=== PATIENT | male | born 1930 | race Caucasian/White ===

== ENCOUNTER 2017-05-30 11:39 | Inpatient (IN) | payer MEDICARE, BC ==
[~2017-05-30] VITALS: Ht 188 cm; Wt 80.4 kg
[~2017-05-30 11:39] MED LIST: ACET80TA52 PO; ACID1TAB13 PO; ALPR0.254 PO; ASPI-630 PO; ATOR10TA60 PO; COLC0.6T34 PO; DOCU-109 PO; ESCITALOPRAM OX10 MG PO; INSU100V8 SQ; LOPE2CAP PO; METO50TA2 PO; MIRT15TA PO; WARF1TAB74 PO; [UNRECOGNIZED DRUG - CODE] MC
[2017-05-30 12:56] LABS: BASO # 0.1 x10^3/uL (0.0-0.2); BASO % 1 % (0-3); EOS # 0.2 x10^3/uL (0.0-0.7); EOS % 3 % (0-3); HEMOGLOBIN 10.5 g/dL (13.0-17.5); LYMPH # 0.8 x10^3/uL (1.0-4.8); LYMPH % 9 % (24-48); MEAN CORPUSCULAR HEMOGLOBIN 25 pg (25-35); MEAN CORPUSCULAR HGB CONC 33 g/dL (31-37); MEAN CORPUSCULAR VOLUME 77 fL (79-100); MONO # 0.7 x10^3/uL (0.0-1.1); MONO % 9 % (0-9); NEUT # 6.6 x10^3uL (1.8-7.7); NEUT % 79 % (31-73); PLATELET COUNT 208 x10^3/uL (140-400); RED BLOOD COUNT 4.17 x10^6/uL (4.30-5.70); RED CELL DISTRIBUTION WIDTH 18.5 % (11.5-14.5); WHITE BLOOD COUNT 8.4 x10^3/uL (4.0-11.0)
[2017-05-30 13:05] LABS: CALCIUM 8.6 mg/dL (8.5-10.1); CREATININE 0.8 mg/dL (0.7-1.3); GFR 91.7
[2017-05-30 13:31] LABS: ALBUMIN 2.1 g/dL (3.4-5.0); C REACTIVE PROTEIN 128.9 mg/L (0-3.3); DIRECT BILIRUBIN 0.4 mg/dL (0.0-0.2); TOTAL BILIRUBIN 0.8 mg/dL (0.2-1.0); TOTAL PROTEIN 5.7 g/dL (6.4-8.2)
--- NOTE | 2017-05-30 13:42 | PHYS DOC ---
General Chief Complaint: LOWER EXT PAIN Stated Complaint: LOWER EXTREMITY PAIN Time Seen by MD: 12:25 Source: patient, old records Exam Limitations: no limitations Problems: History of Present Illness Initial Comments Patient is an 86-year-old male sent to the emergency department from [facility] for right pain and swelling. 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 Patient also has paroxysmal atrial fibrillation with history of DVT, he was taken off of Coumadin months ago. Patient awoke this morning with right lower leg pain and swelling symptoms. Patient denies any trouble breathing or chest discomfort, halfway records indicate the patient may have complained of some transient shortness of breath. Given the patient's extensive cardiac and hypercoagulability history he was sent to the emergency department for further evaluation. On arrival patient complains of mild right lower leg pain worse with movement better with rest. He denies any chest pain trouble breathing no focal weakness. The patient is hard of hearing. 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, CHF, COPD, diabetes, DVT, paroxysmal atrial fibrillation, coronary artery disease, generalized weakness, hyperlipidemia, depression, anxiety, gout, sick sinus syndrome, dysphagia, anemia, hypertension, urinary tension) Surgical History: other (gastrostomy tube, pacemaker) Social History Smoker: non-smoker Alcohol: none Drugs: none (was) Review of Systems Constitutional: denies chills, denies fever, denies malaise Respiratory: see HPI Cardiovascular: denies chest pain, denies palpitations, denies syncope Gastrointestinal: denies diarrhea, denies nausea, denies vomiting Musculoskeletal: denies back pain, denies joint swelling, denies neck pain Skin: see HPI Psychiatric/Neurological: denies headache, denies numbness, denies paresthesia Physical Exam General Appearance: no apparent distress (disheveled) HEENT: PERRL/EOMI, normal ENT inspection (poor dentition, patient is hard of hearing), TMs normal, pharynx normal Neck: non-tender, supple Cardiovascular/Respiratory: regular rate, rhythm, normal peripheral pulses, normal breath sounds, no respiratory distress Back: normal inspection, no CVA tenderness Legs: left leg non-tender, left leg normal inspection, left leg normal range of motion, left leg no evidence of injury, right leg other (edema and induration at the right foot and ankle extending to approximately mid shaft of the right tibia. There is no palpable subcutaneous mass, there does appear to be a healing old ulceration at the anteromedial tibia. There is 2+ pitting lower extremity edema at the right lower leg, patient refuses to allow me to remove his ankle sock for foot evaluation) Neurologic/Tendon: normal sensation, normal motor functions, normal tendon functions, responds to pain, no evidence tendon injury Psychiatric: alert, oriented x 3 Skin: warm/dry (right lower leg as above) Orders, Labs, Meds PATIENT: BIJAN HADDAD ACCOUNT: [id number] : 1930 LOCATION: ER AGE: 86 SEX: M EXAM STATUS: REG ER ORD. PHYSICIAN: ANTOINETTE OCAMPO DO REASON: calf pain/swelling h/o DVT PROCEDURE: VENOUS LOWER EXTREMITY RIGHT Indication right leg swelling and calf redness. Elevated d-dimer. Grayscale color Doppler and spectral imaging was performed. The examination was targeted to the veins of the right lower extremity. The common femoral, femoral and popliteal vessels demonstrate normal flow compressibility and augmentation. No thrombus is seen. The visualized calf veins appeared unremarkable. The left common femoral vein appeared normal. IMPRESSION: Negative right lower extremity venous analysis for DVT DICTATED AND SIGNED BY: LUIS MIGUEL VALLE MD DATE: 05/30/17 1338 CC: ANTOINETTE OCAMPO DO; APPLE HORTA MD ~ Pertinent labs: Hemoglobin 10.5, MCV 87, sedimentation rate 27, d-dimer 2.44, C- reactive protein 128.9, lactic acid 1.1 I discussed the patient with Dr. Montes De Oca, his PCP and real estate acquisition analyst hospitalist. He accepts the patient for inpatient telemetry admission, Zosyn and vancomycin intravenously, and check CTA of the chest. After reviewing these studies Dr Montes De Oca will determine whether he wants bone scan/MRI. Pt is agreeable. IMPRESSIONS: Right lower extremity cellulitis Normocytic anemia Elevated d-dimer Diabetes and hypercoagulable state ANTOINETTE OCAMPO DO May 30, 2017 13:42
[2017-05-30] MEDS ORDERED: PIP/TAZO PER PHARMACY MC PRN (13:45)
[2017-05-30] MEDS ORDERED: IV NORMAL SALINE 50ML 50 ML ONE (13:58)
[2017-05-30] MEDS ORDERED: PIPERACILLIN/TAZOBACTAM 4.5 GM VIAL IV ONE (13:58)
[2017-05-30] MEDS: PIPERACILLIN/TAZOBACTAM 4.5 GM in IV NORMAL SALINE 50ML 50 ML IV SCH ×2 (14:00→21:04)
[2017-05-30] MEDS ORDERED: ACETAMINOPHEN 325 MG TABLET PO PRN (14:15)
[2017-05-30] MEDS ORDERED: VANCOMYCIN 2 GM in IV NORMAL SALINE 500ML 500 ML IV ONE (14:30)
[2017-05-30] MEDS ORDERED: IOHEXOL 300 MG/ML 75 ML VIAL. IV ONE ×2 (15:00→15:10)
[2017-05-30 16:41] VITALS: BP 125/64
[2017-05-30] MEDS: VANCOMYCIN PER PHARMACY MC PRN (17:07)
--- NOTE | 2017-05-30 17:17 | RAD ---
Indication elevated d-dimer. Pain in the legs. Axial images through the chest were obtained. Approximately 75 cc of Omnipaque 300 was administered. MIP images were generated and reviewed. No prior CT imaging of the chest is available. Imaging through the upper abdomen shows no acute finding. The thoracic aorta appears unremarkable. Moderately extensive coronary artery calcification is noted. There are a few mediastinal lymph nodes. No definite pathologic mediastinal or hilar adenopathy is seen. There are calcified right hilar and subcarinal lymph nodes. The study is negative for pulmonary embolus. There is a small to moderate right pleural effusion and a small left. There is volume loss at the lung bases likely reflecting atelectasis. Underlying pneumonia is not entirely excluded. There is a 2 to 3 mm nodule in the right upper lobe, image 18 series 9. Follow-up imaging along the lines of the Fleischner criteria should be considered. IMPRESSION: Negative study for pulmonary embolus. Bilateral pleural effusions right greater than left. Volume loss at the lung bases likely reflects atelectasis. Underlying pneumonia is not entirely excluded. 2 to 3 mm pulmonary nodule in the right upper lobe. Follow-up imaging along the lines of the Fleischner criteria should be considered. Nodules detected incidentally at non-screening CT Nodule size (mm) less than or equal to 4 Low Risk patients- no follow-up needed High Risk patients- follow-up at 12 months and if no change, no further imaging needed. Nodule size > 4-6 mm Low risk patients- follow- up at 12 months and if no change, no further imaging needed High risk patients- initial follow-up CT at 6-12 months and then at 18-24 months if no change. Nodule Size > 6-8 mm Low risk patients- initial follow-up CT at 6-12 months and then at 18-24 months if no change. High risk patients- initial follow- up CT at 3-6 months and then at 9-12 months if no change, Nodule Size >8 mm Either low or high risk patients: Follow-up CT at around 3, 9 and [address], PET, and/or biopsy Note: newly detected indeterminate nodule in person 35 years of age or older. Low risk patients- minimal or absent history of smoking and/or other known risk factors. High risk patients- history of smoking or of other known risk factors. PQRS Compliance Statement: One or more of the following individualized dose reduction techniques were utilized for this examination: 1. Automated exposure control 2. Adjustment of the mA and/or kV according to patient size 3. Use of iterative reconstruction technique
[2017-05-30] MEDS ORDERED: HYDR-971 PO (17:21)
[2017-05-30] MEDS ORDERED: ACET500T68 PO (17:21)
[2017-05-30] MEDS ORDERED: SENN-79 PO (17:21)
[2017-05-30] MEDS ORDERED: PANT40TA3 PO (17:21)
[2017-05-30] MEDS ORDERED: SERT100T PO (17:21)
[2017-05-30] MEDS ORDERED: CHOL10003 PO (17:21)
[2017-05-30] MEDS ORDERED: MULT-208 PO (17:21)
[2017-05-30] MEDS ORDERED: NITR0.4T22 SL (17:21)
[2017-05-30] MEDS ORDERED: FURO-69 PO (17:21)
[2017-05-30] MEDS ORDERED: ACETAMINOPHEN 500 MG TABLET PO PRN (17:45)
[2017-05-30] MEDS ORDERED: NITROGLYCERIN SUBLINGUAL 0.4 MG BOTTLE OF 25. SL PRN (17:45)
[2017-05-30] MEDS ORDERED: SENNOSIDES 8.6 MG TABLET PO PRN (17:45)
[2017-05-30 18:17] VITALS: BP 125/64
[2017-05-30] MEDS: ENOXAPARIN 40 MG/0.4 ML DISP.SYRIN. SQ SCH (18:29)
[2017-05-30 19:53] VITALS: BP 114/59
--- NOTE | 2017-05-30 20:09 | HP ---
ADMIT DATE: 05/30/2017 HISTORY OF PRESENT ILLNESS: The patient is an 86-year-old male patient, a resident at [facility] who was noted this morning by the nursing staff to have swollen, erythematous right lower extremity. He was also noted to be lethargic and hypoxic. According to nursing staff his oxygen saturation was only 70%, and because of the swelling and known history of DVT before, I recommended that the patient be transferred to the Emergency Room of [facility] for further evaluation where he was indeed found to have right lower extremity cellulitis; however, his white cell count was normal and although his C-reactive protein and D-dimer was high at 2.44, venous Doppler ultrasound of the right lower extremity was negative for DVT and CT scan of the chest with PE protocol was negative for pulmonary embolus; however, he has bilateral pleural effusions, right greater than left. The patient himself is very confused, demented and does not give any useful information. PAST MEDICAL HISTORY: Significant for coronary artery disease, mild nonobstructive. He is known to have atrial fibrillation, sick sinus syndrome for which he has a permanent pacemaker placed in 2007. He has type 2 diabetes mellitus, diet controlled, hyperlipidemia, hypertension. He has a history of CVA with left-sided hemiplegia. He even has dysphagia with status post percutaneous endoscopic gastrostomy tube placement and removal. PAST SURGICAL HISTORY: Significant for permanent pacemaker placement as well as percutaneous endoscopic gastrostomy tube placement and removal. ALLERGIES: He has no known drug allergies. MEDICATIONS: He is currently on following medications: Acetaminophen 500 mg every 6 hours, aspirin 81 mg once a day, atorvastatin 5 mg at bedtime, cholecalciferol (vitamin D) 1000 international units once a day, furosemide 20 mg once a day, hydrocodone/APAP 5/325 mg one tablet every 4 hours, multivitamin 1 tablet once a day, nitroglycerin 0.4 mg sublingually every 5 minutes x 3, Protonix 40 mg p.o. b.i.d., senna 1 tablet daily, and sertraline for Zoloft 75 mg at bedtime. FAMILY HISTORY: Unremarkable. SOCIAL HISTORY: He is a resident at [facility]. He does not smoke, drink alcohol or use any recreational drugs. REVIEW OF SYSTEMS: As per history of present illness. He is and he is a former smoker, quit on 03/04/2013. He used to be also a heavy alcohol drinker. He drinks 5 shots of liquor per week. PHYSICAL EXAMINATION: GENERAL: On arrival to the Emergency Room, he looked well and was clearly in no apparent respiratory distress, pale, but not jaundiced or cyanosed. No thyromegaly. No jugular venous distension. No lower limb edema. VITAL SIGNS: His heart rate was 72, blood pressure 125/64, temperature was 98.3, respiratory rate was 16, and oxygen saturation was 96%. HEAD, EYES, EARS, NOSE, AND THROAT: Showed normocephalic, atraumatic. NECK: Supple, with no lymphadenopathy. No thyromegaly. No jugular venous distention. No audible bruit. HEART: Showed normal first and second heart sounds with no gallop, rub or murmur. CHEST: Clear to auscultation. No crepitation or rhonchi. ABDOMEN: Distended, soft, nontender. No guarding or rigidity. No organomegaly. Hernial orifices intact. Bowel sounds normal. NEUROLOGIC: He was awake, alert, confused. All his cranial nerves are intact. He has left-sided hemiplegia. He is mostly bed bound and chair bound. LABORATORY DATA: His lab work in the Emergency Room showed a prothrombin time was 11.9, INR 1.2, APTT was 25, and D-dimer was 2.44. His white cell count was 8400, hemoglobin 10.5, hematocrit 32, MCV 77, and platelet count 208,000. His sedimentation rate was 27 mm per hour. His serum sodium was 138, potassium 4, chloride 106, bicarbonate 32, BUN was 20, creatinine 0.8, estimated GFR was 92 mL per minute, his glucose 117. Calcium was 8.6. Total bilirubin, AST, ALT, alkaline phosphatase were normal. His C-reactive protein was high at 129 mg/dL, total protein was 5.7, albumin 2.1. ASSESSMENT AND PLAN: As I stated, his right lower extremity Doppler ultrasound was negative for DVT and his CT scan of the chest with PE protocol was negative. The right lower extremity is obviously very swollen, red and warm to touch, consistent with right lower extremity cellulitis for which we started him on IV vancomycin and Zosyn. We will continue with all his other medications and follow his labs closely and adjust antibiotics according to the results of the culture and sensitivity. FIDENCIO MUSTAFA MD DR: XENA/reuben JOB#: [id number] / [id number]
[2017-05-30] MEDS: ATORVASTATIN CALCIUM 10 MG TABLET. PO SCH (20:56)
[2017-05-30] MEDS: PANTOPRAZOLE 40 MG TABLET. PO SCH (20:57)
[2017-05-30] MEDS ORDERED: IV NORMAL SALINE 100ML 100 ML ONE (21:01)
[2017-05-30 22:50] VITALS: BP 106/67
[2017-05-31] MEDS ORDERED: IV NORMAL SALINE 100ML 100 ML ONE (04:22)
[2017-05-31 05:00] VITALS: BP 118/71
[2017-05-31] MEDS: PIPERACILLIN/TAZOBACTAM 4.5 GM in IV NORMAL SALINE 50ML 50 ML IV SCH ×3 (05:00→21:12)
[2017-05-31 06:42] LABS: BASO % 1 % (0-3); EOS # 0.3 x10^3/uL (0.0-0.7); EOS % 5 % (0-3); HEMATOCRIT 30.2 % (39.0-53.0); LYMPH # 0.8 x10^3/uL (1.0-4.8); LYMPH % 13 % (24-48); MEAN CORPUSCULAR HEMOGLOBIN 25 pg (25-35); MEAN CORPUSCULAR HGB CONC 33 g/dL (31-37); MEAN CORPUSCULAR VOLUME 75 fL (79-100); MONO # 0.6 x10^3/uL (0.0-1.1); MONO % 10 % (0-9); NEUT # 4.5 x10^3uL (1.8-7.7); NEUT % 71 % (31-73); PLATELET COUNT 206 x10^3/uL (140-400); RED BLOOD COUNT 4.01 x10^6/uL (4.30-5.70); RED CELL DISTRIBUTION WIDTH 18.4 % (11.5-14.5); WHITE BLOOD COUNT 6.3 x10^3/uL (4.0-11.0)
[2017-05-31 06:48] LABS: ALBUMIN 1.8 g/dL (3.4-5.0); ALBUMIN/GLOBULIN RATIO 0.5 (1.0-1.7); CALCIUM 8.6 mg/dL (8.5-10.1); CREATININE 0.8 mg/dL (0.7-1.3); GFR 91.7; POTASSIUM 3.9 mmol/L (3.5-5.1); TOTAL BILIRUBIN 0.8 mg/dL (0.2-1.0); TOTAL PROTEIN 5.2 g/dL (6.4-8.2)
[2017-05-31] MEDS: CHOLECALCIFEROL (VITAMIN D3) 1,000 UNIT TABLET PO SCH (08:32)
[2017-05-31] MEDS: FUROSEMIDE 20 MG TABLET PO SCH (08:32)
[2017-05-31] MEDS: ASPIRIN 81 MG TAB.CHEW PO SCH (08:32)
[2017-05-31] MEDS: PANTOPRAZOLE 40 MG TABLET. PO SCH ×2 (08:32→19:59)
[2017-05-31] MEDS: MULTIVITAMIN with MINERAL TABLET. PO SCH (08:32)
[2017-05-31] MEDS: SERTRALINE 25 MG TABLET. PO SCH (08:33)
[2017-05-31] MEDS: VANCOMYCIN 1.25 GM in IV NORMAL SALINE 250ML 250 ML IV SCH (15:22)
[2017-05-31 15:41] VITALS: BP 102/56
[2017-05-31] MEDS ORDERED: IV NORMAL SALINE 250ML 250 ML ONE (17:30)
[2017-05-31] MEDS: ENOXAPARIN 40 MG/0.4 ML DISP.SYRIN. SQ SCH (18:26)
[2017-05-31] MEDS: ATORVASTATIN CALCIUM 10 MG TABLET. PO SCH (19:59)
[2017-05-31] MEDS: HYDROcodone/APAP 5/325MG 1 TAB TABLET PO PRN (20:00)
[2017-05-31 20:28] VITALS: BP 110/60
[2017-05-31 22:50] VITALS: BP 107/56
--- NOTE | 2017-06-01 04:25 | PN ---
DATE: 05/31/2017 SUBJECTIVE: The patient is resting, slightly propped up in bed, in no apparent distress. On questioning him, he did complain of toothache. Denied any chills, rigors or fever. The nursing staff did not voice any concern and stated that he had an uneventful night. He was seen by the wound care team, who did the dressing changes of the wound on his left outer aspect of the left foot. The swelling and erythema of his right foot and leg are slightly better, has not completely resolved. OBJECTIVE: GENERAL: When I examined him, he was pale, but not jaundiced, cyanosed, or thyromegaly. No jugular venous distention. No limb edema. VITAL SIGNS: His heart rate was 60, blood pressure 118/71, temperature was 96.9, respiratory rate was 20, and oxygen saturation was 99% on 2 liters of oxygen. HEAD, EYES, EARS, NOSE AND THROAT: Showed normocephalic, atraumatic. NECK: Supple. HEART: Showed normal first and second heart sounds with no gallop, rub or murmur. CHEST: Clear to auscultation. No crepitation or rhonchi. ABDOMEN: Distended, soft, nontender. No guarding or rigidity. No organomegaly. Hernial orifices intact. Bowel sounds normal. NEUROLOGIC: He was awake, alert, responding appropriately. Cranial nerves intact. He has left-sided hemiplegia, mostly bed bound and chair bound. His intake over the last 24 hours was incompletely recorded. LABORATORY DATA: As of this morning showed a serum sodium of 141, potassium 3.9, chloride 108, bicarbonate 33, anion gap of 0. BUN 16, creatinine 0.8, estimated GFR was 92 mL per minute. His glucose was 79, calcium was 8.6. Total bilirubin, AST, ALT were normal. Alkaline phosphatase was elevated. Total protein was 5.2, albumin was 1.8. White cell count was 6300, hemoglobin 10, hematocrit 30, MCV 75, and platelet count of 206,000. Sedimentation rate was 27 mm per hour. C-reactive protein was 128.9 mg/dL. His blood culture is still pending at the time of this dictation. ASSESSMENT: 1. Right lower extremity cellulitis, elevated D-dimer; however, the right lower extremity venous Doppler ultrasound was negative for DVT and CT scan of the chest with PE protocol was negative for pulmonary embolism. Other medical problems include right middle cerebral artery territory infarct with left-sided hemiplegia. 2. Atrial fibrillation and sick sinus syndrome, status post permanent pacemaker 3. Type 2 diabetes mellitus, diet controlled. 4. Hyperlipidemia. 5. Hypertension. PLAN: To obviously continue with wound care. Continue with IV antibiotic. Continue to monitor his blood sugar and continue with DVT prophylaxis in the form of Lovenox. Continue with pain management. FIDENCIO MUSTAFA MD DR: XENA/reuben JOB#: [id number] / [id number]
[2017-06-01] MEDS: PIPERACILLIN/TAZOBACTAM 4.5 GM in IV NORMAL SALINE 50ML 50 ML IV SCH ×3 (05:17→21:07)
[2017-06-01 05:58] VITALS: BP 119/65
[2017-06-01] MEDS: CHOLECALCIFEROL (VITAMIN D3) 1,000 UNIT TABLET PO SCH (09:00)
[2017-06-01] MEDS: MULTIVITAMIN with MINERAL TABLET. PO SCH (09:00)
[2017-06-01] MEDS: PANTOPRAZOLE 40 MG TABLET. PO SCH ×2 (09:00→20:34)
[2017-06-01] MEDS: FUROSEMIDE 20 MG TABLET PO SCH (09:00)
[2017-06-01] MEDS: SERTRALINE 25 MG TABLET. PO SCH (09:00)
[2017-06-01 11:31] VITALS: BP 138/56
[2017-06-01] MEDS: ASPIRIN 81 MG TAB.CHEW PO SCH (12:59)
[2017-06-01] MEDS ORDERED: IV NORMAL SALINE 250ML 250 ML ONE (14:13)
[2017-06-01 14:51] LABS: VANC TR 11.4 mcg/mL (10.0-20.0)
[2017-06-01 15:26] VITALS: BP 102/62
[2017-06-01] MEDS: VANCOMYCIN PER PHARMACY MC PRN (15:43)
[2017-06-01] MEDS: VANCOMYCIN 1.25 GM in IV NORMAL SALINE 250ML 250 ML IV SCH (15:54)
[2017-06-01] MEDS: ENOXAPARIN 40 MG/0.4 ML DISP.SYRIN. SQ SCH (17:43)
[2017-06-01 19:00] VITALS: BP 108/60
[2017-06-01] MEDS: HYDROcodone/APAP 5/325MG 1 TAB TABLET PO PRN (20:34)
[2017-06-01] MEDS: ATORVASTATIN CALCIUM 10 MG TABLET. PO SCH (20:35)
[2017-06-01 23:08] VITALS: BP 106/60
[2017-06-02] MEDS: PIPERACILLIN/TAZOBACTAM 4.5 GM in IV NORMAL SALINE 50ML 50 ML IV SCH (05:21)
[2017-06-02 06:16] VITALS: BP 134/78
[2017-06-02 06:34] LABS: BASO # 0.1 x10^3/uL (0.0-0.2); BASO % 1 % (0-3); EOS # 0.4 x10^3/uL (0.0-0.7); EOS % 6 % (0-3); HEMATOCRIT 29.4 % (39.0-53.0); LYMPH # 1.1 x10^3/uL (1.0-4.8); LYMPH % 18 % (24-48); MEAN CORPUSCULAR HEMOGLOBIN 26 pg (25-35); MEAN CORPUSCULAR HGB CONC 34 g/dL (31-37); MEAN CORPUSCULAR VOLUME 76 fL (79-100); MONO # 0.6 x10^3/uL (0.0-1.1); MONO % 10 % (0-9); NEUT % 65 % (31-73); PLATELET COUNT 186 x10^3/uL (140-400); RED BLOOD COUNT 3.89 x10^6/uL (4.30-5.70); RED CELL DISTRIBUTION WIDTH 18.4 % (11.5-14.5); WHITE BLOOD COUNT 6.1 x10^3/uL (4.0-11.0)
[2017-06-02 06:51] LABS: ALBUMIN 1.7 g/dL (3.4-5.0); ALBUMIN/GLOBULIN RATIO 0.5 (1.0-1.7); CALCIUM 8.3 mg/dL (8.5-10.1); CREATININE 0.7 mg/dL (0.7-1.3); GFR 106.9; POTASSIUM 3.4 mmol/L (3.5-5.1); TOTAL BILIRUBIN 0.6 mg/dL (0.2-1.0); TOTAL PROTEIN 5.2 g/dL (6.4-8.2)
[2017-06-02] MEDS: PANTOPRAZOLE 40 MG TABLET. PO SCH (08:40)
[2017-06-02] MEDS: ASPIRIN 81 MG TAB.CHEW PO SCH (08:40)
[2017-06-02] MEDS: FUROSEMIDE 20 MG TABLET PO SCH (08:41)
[2017-06-02] MEDS: MULTIVITAMIN with MINERAL TABLET. PO SCH (08:41)
[2017-06-02] MEDS: CHOLECALCIFEROL (VITAMIN D3) 1,000 UNIT TABLET PO SCH (08:41)
[2017-06-02] MEDS: SERTRALINE 25 MG TABLET. PO SCH (08:41)
--- NOTE | 2017-06-02 10:18 | PN ---
DATE: 06/01/2017 SUBJECTIVE: The patient is resting, slightly propped up in bed, in no apparent respiratory distress. He is awake, alert. Denied any chills, rigors, or fever. The nursing staff did not voice any concern except that he did refuse to take his medication this morning, although eventually agreed and became more cooperative and compliant with care and medication. OBJECTIVE: GENERAL: When I examined him he looked somewhat pale, but no jaundice, cyanosis, or thyromegaly. No jugular venous distention. No limb edema. VITAL SIGNS: His heart rate was 72, blood pressure 138/56, temperature was 97.4, respiratory rate was 18, and oxygen saturation was 99% on 2 liters of oxygen. HEAD, EYES, EARS, NOSE AND THROAT: Showed normocephalic, atraumatic. NECK: Supple. HEART: Showed normal first and second heart sounds with no gallop, rub, or murmur. CHEST: Clear to auscultation. No crepitation or rhonchi. ABDOMEN: Distended, soft, nontender. No guarding or rigidity. No organomegaly. Hernial orifices intact. Bowel sounds normal. NEUROLOGIC: He is awake, alert, responding appropriately. Cranial nerves intact. He has left-sided hemiplegia. He is mostly bedbound, chair bound. The redness and swelling of the right foot and leg is slightly better, although the redness has completely. He has wounds in the outer aspect of his left foot. His intake was and no output was recorded. LABORATORY DATA: His lab work this morning showed a white cell count 6300, hemoglobin 10, hematocrit 30, MCV 75, and platelet count of 206,000. His chemistry showed a serum sodium of 141, potassium 3.9, chloride 108, bicarbonate 33, BUN is 16, creatinine 0.8, estimated GFR was 92 mL per minute. His glucose was 79, calcium was 8.6. Total bilirubin, AST, ALT were normal. Alkaline phosphatase was high at 195. Total protein was 5.2, albumin was 1.8. His nasal screen for MRSA by PCR was positive. His blood cultures are so far negative. PLAN: My plan is to continue with IV antibiotics for today and will repeat his labs and hopefully can discharge him back to [place] on oral antibiotics to finish the course of treatment. FIDENCIO MUSTAFA MD DR: Peewee JOB#: [id number] / [id number]
[2017-06-02 11:00] VITALS: BP 116/55
--- NOTE | 2017-06-03 00:31 | DS ---
DATE OF DISCHARGE: 06/02/2017 HOSPITAL COURSE: The patient is an 86-year-old male patient, a resident at [facility], was admitted and was noted by the nursing staff to have swollen, erythematous right lower extremity, was also noted to be lethargic and hypoxic and according to the nursing staff, his oxygen saturation was only 70% and because of the swelling and a known history of DVT, he was transferred to the Emergency Room of [facility] for further evaluation and he was indeed found to have right lower extremity cellulitis and swelling of the right lower extremity, although his white cell count was normal, though his C-reactive protein and D-dimer was elevated, a venous Doppler ultrasound of his right lower extremity was negative for DVT and a CT scan of the chest with PE protocol was negative for pulmonary embolism; however, he has bilateral pleural effusion, right greater than left. The patient himself was very confused, demented, does not give any useful information. The patient was started on vancomycin and Zosyn. The redness and swelling of his right lower extremity has subsided, although the redness has not completely resolved; however, the patient remained afebrile, hemodynamically stable. His white cell count was normal. Blood cultures were negative and therefore, the patient was switched to oral Keflex and was discharged back to [facility] to continue the course of therapy at a nursing facility orally. PHYSICAL EXAMINATION: GENERAL: When I examined him today, he looked well and was clearly in no apparent respiratory distress, pale, but no jaundice, cyanosis or thyromegaly. No jugular venous distention. No limb edema. VITAL SIGNS: His heart rate was 68, blood pressure was 116/55, temperature was 97.6, respiratory rate was 20, and oxygen saturation was 100% on room air. HEAD, EYES, EARS, NOSE AND THROAT: Showed normocephalic, atraumatic. NECK: Supple. HEART: Showed normal first and second heart sounds with no gallop, rub, or murmur. CHEST: Clear to auscultation. No crepitation or rhonchi. ABDOMEN: Distended, soft, nontender. No guarding or rigidity. No organomegaly. Hernial orifices intact. Bowel sounds normal. NEUROLOGIC: He was confused; however, all cranial nerves are intact. He has left-sided hemiplegia. EXTREMITIES: His wounds in the outer aspect of left foot covered with dressing. His intake over the last 24 hours was 910, no output was recorded. His lab work as of this morning showed a serum sodium 139, potassium 3.4, chloride 107, bicarbonate 29, anion gap of 3, BUN 10, creatinine 0.7, estimated GFR was 107 mL per minute. His glucose was 82. Calcium was 8.3. Total bilirubin, AST, ALT were normal. Alkaline phosphatase was slightly elevated. Total protein was 5.2, albumin 1.7. His white cell count was 6100, hemoglobin 10, hematocrit 29, MCV 76, and platelet count of 186,000. His sedimentation rate was 27 mm per hour and C-reactive protein was 128.9 mg/dL. The patient was discharged back to [facility] to continue on: 1. Keflex 500 mg 4 times a day for 7 days. 2. Tylenol 650 mg every 4 hours as needed. 3. Aspirin 81 mg once a day. 4. Atorvastatin calcium 5 mg at bedtime. 5. Cholecalciferol vitamin D3 1000 international units once a day. 6. Furosemide 20 mg once a day. 7. Hydrocodone/APAP 5/325 one tablet every 4 hours. 8. Multivitamin 1 tablet once a day. 9. Nitroglycerin 0.4 mg sublingually every 5 minutes x 3 for chest pain. 10. Protonix 40 mg twice a day. 11. Senna 1 tablet once a day. 12. Sertraline (Zoloft) 75 mg once a day. FINAL DISCHARGE DIAGNOSES: 1. Right lower extremity cellulitis, resolving. The patient has elevated D-dimer; however, the right lower extremity venous Doppler ultrasound was negative for DVT and CT scan of the chest with pulmonary embolism protocol was negative for pulmonary embolism. 2. Other medical problems include right middle cerebral artery territory infarct, left side hemiplegia. 3. Atrial fibrillation, sick sinus syndrome, status post permanent pacemaker placement. 4. Type 2 diabetes mellitus, diet controlled. 5. Hyperlipidemia. 6. Hypertension. FIDENCIO MUSTAFA MD DR: XENA/reuben JOB#: [id number] / [id number]
== END 2017-06-02 14:05 | disposition home or self-care (01) | DRG 602 ==
LOC: ER 11:39 → 1 SOUTH 14:25
PROVIDERS: ADMIT Internal Medicine; ATTEND Internal Medicine
DX: L03.115 Cellulitis of right lower limb (principal); G92 Toxic encephalopathy; E43 Unspecified severe protein-calorie malnutrition; D68.59 Other primary thrombophilia; F03.90 Unspecified dementia, unspecified severity, without behavioral disturbance, psychotic disturbance, mood disturbance, and anxiety; I11.0 Hypertensive heart disease with heart failure; I50.9 Heart failure, unspecified; I69.354 Hemiplegia and hemiparesis following cerebral infarction affecting left non-dominant side; D64.9 Anemia, unspecified; E11.9 Type 2 diabetes mellitus without complications; I48.0 Paroxysmal atrial fibrillation; F32.9 Major depressive disorder, single episode, unspecified; F41.9 Anxiety disorder, unspecified; J44.9 Chronic obstructive pulmonary disease, unspecified; M10.9 Gout, unspecified; E78.5 Hyperlipidemia, unspecified; I25.10 Atherosclerotic heart disease of native coronary artery without angina pectoris; Z95.0 Presence of cardiac pacemaker; Z87.891 Personal history of nicotine dependence; Z79.82 Long term (current) use of aspirin; Z79.899 Other long term (current) drug therapy
CPT/HCPCS: 36415; 71275; 80048; 80053; 80076; 80202; 82947; 83605; 84484; 85025; 85379; 85610; 85651; 85730; 86140; 87040; 87641; 93971; 96365; J1650; J2543; J3370; J7040; J7050; 99285-25